=== PATIENT | female | born 2000 | race Caucasian/White ===

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

== ENCOUNTER 2022-05-19 19:33 | Emergency (ER) | payer BC, SELFPAY ==
[2022-05-19 19:34] VITALS: BP 137/114; PULSE 130; RESP 15; TEMP 37.4; O2SAT 99; BMI 19.8
[2022-05-19] MEDS: 0.9% Normal Saline 1,000 ML 1000 ML IV (20:02)
[2022-05-19] MEDS: dexAMETHasone 10 MG/ML Vial IV (20:02)
[2022-05-19 20:19] LABS: Absolute Lymphocyte Count 2.34 X10^3/uL (0.83-4.51); Absolute Neutrophil Count 7.1 X10^3/uL (2.0-7.7); Basophil# 0.02 X10^3/uL; Basophil% 0.2 % (0-1); Hematocrit 37.6 % (37-47); Hemoglobin 12.3 g/dL (12.0-15.0); Lymphocyte # 2.34 X10^3/ul (0.83-4.51); Lymphocyte % 22.1 % (19-41); Mean Corp Hgb Conc 32.7 g/dL (32-36); Mean Corpuscular Hgb 28.1 pg (27.0-32.0); Mean Corpuscular Volume 85.8 fL (81-99); Monocyte# 1.12 X10^3/uL; Monocyte% 10.6 % (0-10); NRBC Flagged by Analyzer 0 % (0-5); Neutrophil # 7.06 X10^3/uL (2.7-7.7); Neutrophil % 66.5 % (47-70); Platelet Count 212 K/mm3 (150-450); RBC Distribution Width CV 13.5 % (11.6-14.6); RBC Distribution Width SD 42.2 fl (35.1-43.9); Red Blood Count 4.38 M/mm3 (4.2-5.4); White Blood Count 10.6 K/mm3 (4.4-11.0)
--- NOTE | 2022-05-19 20:19 | EDS_ITS ---
HPI History of Present Illness Chief Complaint: Fever Informant: patient Onset/Context/Timing Onset: Days (3) Context: Gradual Onset Timing: Continuous Quality: Sharp Location: Throat Worsened by: Swallowing Relieved by: Nothing Narrative Narrative: Patient presents with fever and sore throat that has been getting worse over the last 3 days. Patient states that her fever was up to 106.9 at home. Patient states that she was recently diagnosed with mononucleosis. Patient states she has been having difficulty swallowing due to the swelling of her tonsils. Patient states that she has had a cough recently. Patient states she vomited after a cough. Patient states her pain is sharp. Patient states it is worse with any swallowing. Patient states she is able to swallow some liquids however. Patient admits to generalized body aches and muscle aches. PFSH PFSH Medical History no medical history no medical history Home Medications dexamethasone 6 mg tablet 6 mg PO DAILY #7 tabs 05/19/22 [Rx Last Taken Unknown] Allergy/AdvReac Type Severity Reaction Status Date / Time No Known Allergies Allergy Verified 03/07/21 14:55 Surgical History no surgical history no surgical history Social History (Updated 05/19/22 @ 20:[address] Walter Vasquez, DO) Smoking Status: Current every day smoker tobacco type: cigarettes substance use type: marijuana ROS ROS ED Constitutional Constitutional ED: Denies chills or fever(s) Eyes Eyes: Reports blurry vision; Denies change in vision ENT ENT ED: Reports sore throat; Denies rhinorrhea Cardiovascular Cardiovascular: Denies chest pain or palpitations Respiratory/Chest Respiratory/Chest: Reports cough; Denies dyspnea Gastrointestinal Gastrointestinal: Reports vomiting; Denies nausea Genitourinary Genitourinary ED: Denies dysuria or hematuria Musculoskeletal Musculoskeletal: Reports myalgias; Denies back pain or neck pain Integumentary Reports rash; Denies abscess Neurologic Neurologic: Denies headache(s) or weakness Allergic/Immunologic Allergic/Immunologic ED: Denies mouth swelling or urticaria EXAM Physical Exam Const Vital Signs: 05/19/22 19:34 05/19/22 19:40 Temperature 99.3 F H Temperature Source Temporal Pulse Rate 130 H Respiratory Rate 15 Respiratory Effort Normal Respiratory Pattern Normal Blood Pressure 137/114 H Blood Pressure Mean 121 Pulse Ox 99 Oxygen Delivery Method Room Air Positive well nourished and well developed General Appearance ED: well developed and NAD HEENT Reports moist mucous membranes HEENT Narrative: Oropharynx is erythematous. There are exudates on the tonsils bilaterally. Tonsils are swollen. Airway is patent. Neck supple and no JVD Neck Narrative: There is tender anterior cervical lymphadenopathy. Resp normal respiratory effort and clear to auscultation bilaterally Cardio regular rate and regular rhythm Neuro oriented x3, CN's II-XII intact bilaterally and no sensory deficits noted Sensorium / Orientation: alert Motor Exam: strength 5/5 throughout Psych mental status grossly normal MDM MDM MDM Narrative Medical decision making narrative: Patient was given IV fluids and Decadron here. CBC was within normal limits. Basic metabolic profile was within normal limits. Patient is feeling better on reevaluation. Patient was given a prescription for Decadron. Patient was instructed to start with ice chips and cold fluids. Patient was instructed to advance her diet as she feels better and is able to swallow more. Patient was instructed to follow-up with her primary care physician in 5 to 7 days. Patient understands and is agreeable with the plan. All questions were answered. Lab Data Attestation: I reviewed the patient's lab results. Labs: Laboratory Results - last 24 hr 05/19/22 05/19/22 20:05 20:05 WBC 10.6 RBC 4.38 Hgb 12.3 Hct 37.6 MCV 85.8 MCH 28.1 MCHC 32.7 RDW Std Deviation 42.2 RDW Coeff of Martha 13.5 Plt Count 212 MPV 9.0 Immature Gran % (Auto) 0.600 Neut % (Auto) 66.5 Lymph % (Auto) 22.1 [place] % (Auto) 10.6 H Eos % (Auto) 0.0 Baso % (Auto) 0.2 Absolute Neuts (auto) 7.1 Absolute Lymphs (auto) 2.34 Nucleated RBC % 0 Sodium 135 L Potassium 4.0 Chloride 101 Carbon Dioxide 28.0 Anion Gap 6 BUN 14 Creatinine 1.00 Estim Creat Clear Calc 79.04 Est GFR (MDRD) Af Amer 90 Est GFR (MDRD) Non-Af 75 BUN/Creatinine Ratio 14.0 Glucose 116 H Calcium 9.0 Discharge Plan Triage Chief Complaint: Fever ED Provider: Walter Vasquez Dx/Rx/DC Orders Clinical Impression: Acute pharyngitis, Infectious mononucleosis Instructions: ED Mononucleosis Prescriptions: New dexamethasone 6 MG tablet 6 mg PO DAILY Qty: 7 0RF Primary Care Provider: Care Physician,No Primary Referrals: Mily Rajan [Non-Staff] - 5-7 Days Care Physician,No Primary [Primary Care Provider] - Disposition Disposition: Home, Self Care
[2022-05-19 20:34] LABS: Anion Gap 6 (5-15); BUN 14 mg/dL (7-18); Chloride 101 mmol/L (98-107); EST Glomerular Filtration Rate 75 mL/min (>60); Est Glom Filt Rate - Afr Amer 90 mL/min (>60); Estimated Creatinine Clearance 79.04 ml/min; Glucose 116 mg/dL (74-106); Sodium Level 135 mmol/L (136-145)
[2022-05-19 21:52] VITALS: PULSE 85; RESP 15; O2SAT 99
== END 2022-05-19 21:52 | disposition home or self-care (01) ==
PROVIDERS: Emergency Provider Emergency Medicine; Visit Provider Emergency Medicine
DX: B27.90 Infectious mononucleosis, unspecified without complication (principal); J02.9 Acute pharyngitis, unspecified; F17.210 Nicotine dependence, cigarettes, uncomplicated; R50.9 Fever, unspecified; R11.10 Vomiting, unspecified
CPT/HCPCS: 80048; 85025; 96361; 96374; 99283; J7030; A4216

== ENCOUNTER 2022-05-21 22:07 | Emergency (ER) | payer BC, MEDICAID, SELFPAY ==
[2022-05-21 22:11] VITALS: BP 113/81; PULSE 122; RESP 14; TEMP 37.6; O2SAT 94
--- NOTE | 2022-05-21 22:56 | EKG12_ITS ---
Test Reason : DYSRHYTHMIA Blood Pressure : / mmHG Vent. Rate : 107 BPM Atrial Rate : 107 BPM P-R Int : 154 ms QRS Dur : 072 ms QT Int : 308 ms P-R-T Axes : 049 043 006 degrees QTc Int : 411 ms Sinus tachycardia Nonspecific T wave abnormality Abnormal ECG Confirmed by JUAN RAYO, HINA ([id number]), senior editor JACY GIRALDO ([id number]) on 05/22/2022 11:45:27 AM Referred By: DAVONTE Confirmed By:HINA MARTINEZ MD
--- NOTE | 2022-05-21 23:00 | EX.ED.DYSGE1 ---
HPI History of Present Illness Chief Complaint: Nausea/Vomiting Informant: patient Narrative Narrative: Patient presents with nausea vomiting and difficulty taking p.o. She states her throat has been sore for about 5 or 6 days. She has some mild fevers intermittently and malaise. She was seen at urgent care. She had negative strep COVID influenza. Therefore she was told she has mono but it sounds like a mono test was not actually done. She was seen here and felt better after treatment. She evidently does have some Zofran at home left over from her prior illness but is not really helping with nausea. She states she is able to swallow food and drink. But she vomits it up. Its not so much inability to swallow with an inability to keep it down. Not really having abdominal pain. Her urination is decreased in volume but there is no dysuria burning. No diarrhea. She is not really coughing. She is not short of breath. PFSH PFSH Home Medications dexamethasone 6 mg tablet 6 mg PO DAILY #7 tabs 05/19/22 [Rx Last Taken Unknown] promethazine 25 mg tablet 25 mg PO TID PRN nausea and vomiting #10 tabs 05/22/22 [Rx Last Taken Unknown] Allergy/AdvReac Type Severity Reaction Status Date / Time No Known Allergies Allergy Verified 05/21/22 22:11 Social History Smoking Status: Former smoker substance use type: marijuana ROS ROS ED Constitutional Constitutional ED: Reports fever(s) and subjective Eyes Eyes: Denies blurry vision, change in vision or diplopia ENT ENT ED: Reports sore throat Cardiovascular Cardiovascular: Denies chest pain or palpitations Respiratory/Chest Respiratory/Chest: Denies cough or dyspnea Gastrointestinal Gastrointestinal: Reports nausea and vomiting; Denies abdominal pain, constipation or diarrhea Genitourinary Genitourinary ED: Reports other Details: Decrease frequency and amount. ; Denies dysuria, hematuria or urinary frequency Musculoskeletal Musculoskeletal: Denies myalgias Integumentary Denies rash Neurologic Neurologic: Denies headache(s) Hematologic/Lymphatic Hematologic/Lymphatic: Reports lymphadenopathy Allergic/Immunologic Allergic/Immunologic ED: Denies urticaria EXAM Physical Exam Const Vital Signs: 05/21/22 22:11 Temperature 99.6 F H Temperature Source Temporal Pulse Rate 122 H Respiratory Rate 14 Blood Pressure 113/81 H Blood Pressure Mean 91 Pulse Ox 94 Oxygen Delivery Method Room Air Positive well nourished and well developed General Appearance ED: well developed; Negative for pallor HEENT Reports dry mucous membranes HEENT Narrative: Both tonsillar pillars are somewhat enlarged. There is some erythema. She is able to handle secretions though. Floor the mouth is soft. No sinus tenderness. Mouth ED: Yes dry mucous membranes Mouth: dry mucous membranes Eyes EOMs intact bilaterally General Eye ED: Negative for pale conjunctiva or scleral icterus Neck Neck Narrative: Patient does have bilateral lymphadenopathy. No stridor is heard. Resp normal respiratory effort and clear to auscultation bilaterally Cardio regular rhythm and no murmurs Rate: tachycardic GI normal to inspection, nondistended, normoactive bowel sounds and non-tender Back/Spine no CVA tenderness Neuro Sensorium / Orientation: alert Psych mental status grossly normal Skin no rashes or lesions noted General Skin Exam: Negative for jaundice or pallor MDM MDM MDM Narrative Medical decision making narrative: Patient is given IV fluids and Zofran. This did help her. Her blood work comes back showing decreased hemoglobin. Some of this might be from IV fluids that she has received. She now tells me that she is drinking fluids. But if she drinks too much at 1 time she gets nauseated and will vomit. If she drinks small amounts which she has been trying to do she actually does well. Again, its not difficulty swallowing its more the nausea. Electrolytes did show some mildly decreased calcium but this could also be related to the slightly low protein with an acute illness. The low hemoglobin may also be due to a viral illness causing some slight hemolysis. She is not at all jaundice though. There is no right upper quadrant pain. [place] screen is negative. As well as strep being negative. This is most likely a viral illness. I think she is okay to go home. She is able to drink fluids here. She is able to keep down some fluids. I will write for some Phenergan so she has 2 options of meds for nausea. We discussed reasons to return including lack of resolution, development of pain, trouble swallowing, yellowing of eyes or other concerns Lab Data Attestation: I reviewed the patient's lab results. Labs: Laboratory Results - last 24 hr 05/22/22 05/22/22 05/22/22 00:10 00:45 00:45 WBC 7.6 RBC 3.42 L Hgb 9.5 L Hct 29.6 L MCV 86.5 MCH 27.8 MCHC 32.1 RDW Std Deviation 42.9 RDW Coeff of [place] 13.7 Plt Count 186 MPV 8.6 Immature Gran % (Auto) 0.300 Neut % (Auto) 61.6 Lymph % (Auto) 26.5 [place] % (Auto) 10.9 H Eos % (Auto) 0.4 Baso % (Auto) 0.3 Absolute Neuts (auto) 4.7 Absolute Lymphs (auto) 2.02 Nucleated RBC % 0 Atypical Lymphocytes 1+ Sodium 139 Potassium 3.5 Chloride 108 H Carbon Dioxide 24.0 Anion Gap 7 BUN 10 Creatinine 0.74 Estim Creat Clear Calc 4.56 Est GFR (MDRD) Af Amer 128 Est GFR (MDRD) Non-Af 106 BUN/Creatinine Ratio 13.5 Glucose 91 Calcium 7.6 L Monoscreen Negative Discharge Plan Triage Chief Complaint: Nausea/Vomiting ED Provider: Gianni Stinson Dx/Rx/DC Orders Clinical Impression: Acute pharyngitis, Nausea & vomiting Instructions: ED Pharyngitis, Viral, ED Vomiting (Adult) Prescriptions: New promethazine 25 mg tablet 25 mg PO TID PRN (Reason: nausea and vomiting) Qty: 10 0RF No Action dexamethasone 6 MG tablet 6 mg PO DAILY Qty: 7 0RF Primary Care Provider: Care Physician,No Primary Referrals: Suha Meadows MD [Med Staff - Client Architect] - 1-2 Days if not improving Care Physician,No Primary [Primary Care Provider] - Disposition Disposition: Home, Self Care
[2022-05-21] MEDS: Ondansetron 4 MG/2 ML Vial IV (23:53)
[2022-05-21] MEDS: 0.9% Normal Saline 1,000 ML 1000 ML IV (23:53)
[2022-05-22 00:38] LABS: Internal QC Validated? YES +Cl - CLEAR BKGD; Monotest Negative (Negative)
[2022-05-22 00:53] LABS: Absolute Lymphocyte Count 2.02 X10^3/uL (0.83-4.51); Absolute Neutrophil Count 4.7 X10^3/uL (2.0-7.7); Basophil# 0.02 X10^3/uL; Basophil% 0.3 % (0-1); Eosinophil# 0.03 X10^3/uL; Eosinophils% 0.4 % (0-5); Hematocrit 29.6 % (37-47); Hemoglobin 9.5 g/dL (12.0-15.0); Lymphocyte # 2.02 X10^3/ul (0.83-4.51); Lymphocyte % 26.5 % (19-41); Mean Corp Hgb Conc 32.1 g/dL (32-36); Mean Corpuscular Hgb 27.8 pg (27.0-32.0); Mean Corpuscular Volume 86.5 fL (81-99); Mean Platelet Vol. 8.6 fl (6.2-12.0); Monocyte# 0.83 X10^3/uL; Monocyte% 10.9 % (0-10); NRBC Flagged by Analyzer 0 % (0-5); Neutrophil # 4.71 X10^3/uL (2.7-7.7); Neutrophil % 61.6 % (47-70); POSITIVE MORPHOLOGY YES; Platelet Count 186 K/mm3 (150-450); RBC Distribution Width CV 13.7 % (11.6-14.6); RBC Distribution Width SD 42.9 fl (35.1-43.9); Red Blood Count 3.42 M/mm3 (4.2-5.4); White Blood Count 7.6 K/mm3 (4.4-11.0)
[2022-05-22 01:00] VITALS: RESP 18
[2022-05-22 01:02] LABS: Differential Indicated SCAN CRITERIA MET
[2022-05-22 01:06] LABS: Anion Gap 7 (5-15); Atypical Lymphocyte 1+ %; BUN 10 mg/dL (7-18); BUN/Creat Ratio 13.5 RATIO (10-20); Calcium,Total 7.6 mg/dL (8.5-10.1); Chloride 108 mmol/L (98-107); Creatinine, Serum 0.74 mg/dL (0.55-1.02); EST Glomerular Filtration Rate 106 mL/min (>60); Est Glom Filt Rate - Afr Amer 128 mL/min (>60); Estimated Creatinine Clearance 4.56 ml/min; Glucose 91 mg/dL (74-106); Potassium 3.5 mmol/L (3.5-5.1); Sodium Level 139 mmol/L (136-145)
[2022-05-22 01:48] VITALS: BP 121/77; PULSE 104; RESP 16; O2SAT 98
== END 2022-05-22 01:49 | disposition home or self-care (01) ==
PROVIDERS: Emergency Provider Emergency Medicine; Visit Provider Emergency Medicine
DX: R11.2 Nausea with vomiting, unspecified (principal); J02.9 Acute pharyngitis, unspecified; B27.90 Infectious mononucleosis, unspecified without complication; Z87.891 Personal history of nicotine dependence
CPT/HCPCS: 80048; 85025; 86308; 87880; 93005; 99285; J7030; A4216; J2405

== ENCOUNTER 2023-06-17 09:00 | Emergency (ER) | payer BC, SELFPAY ==
[2023-06-17 09:01] VITALS: BP 136/85; PULSE 109; RESP 16; TEMP 36.6; O2SAT 99; BMI 24.2
--- NOTE | 2023-06-17 09:22 | EX.ED.DYSGE1 ---
HPI History of Present Illness Chief Complaint: Fever Informant: patient Narrative Narrative: 22-year-old patient presenting to the emergency room with fever and cough. Patient states that she became ill towards the end of last week. Over the weekend symptoms worsened and include cough sore throat myalgias and fever. She notes that her significant other works at a daycare. Her mother works at a hospital. She has been taking Tylenol. Last dose approximately 3 hours ago at 1 g. She states the same thing happened to her last year when she was sick for 14 days. This felt to be a viral illness. She is a non-smoker and otherwise healthy. She notes a slight amount of diarrhea. PFSH PFSH Home Medications dexamethasone 6 mg tablet 6 mg PO DAILY #7 tabs 05/19/22 [Rx Last Taken Unknown] promethazine 25 mg tablet 25 mg PO TID PRN nausea and vomiting #10 tabs 05/22/22 [Rx Last Taken Unknown] Allergy/AdvReac Type Severity Reaction Status Date / Time No Known Allergies Allergy Verified 06/17/23 09:01 Social History Smoking Status: Former smoker substance use type: marijuana ROS ROS ED Constitutional Constitutional ED: Reports chills and fever(s); Denies weight loss Eyes Eyes: Denies change in vision or diplopia ENT ENT ED: Reports rhinorrhea and sore throat; Denies ear pain Cardiovascular Cardiovascular: Denies chest pain, orthopnea, palpitations or racing heartbeat Respiratory/Chest Respiratory/Chest: Reports cough; Denies dyspnea or orthopnea Gastrointestinal Gastrointestinal: Reports diarrhea; Denies abdominal pain, nausea or vomiting Genitourinary Genitourinary ED: Denies dysuria, hematuria or urinary frequency Musculoskeletal Musculoskeletal: Reports myalgias; Denies arthralgias, back pain or neck pain Integumentary Denies abscess or rash Neurologic Neurologic: Denies paresthesias or weakness Psychiatric Psychiatric: Denies anxiety, depression, suicidal ideation or suicidal thoughts Endocrine Endocrinology: Denies polydipsia, polyphagia or polyuria Allergic/Immunologic Allergic/Immunologic ED: Denies mouth swelling, tongue swelling or urticaria EXAM Physical Exam Narrative Exam Narrative: Well-appearing 22-year-old patient sitting comfortably in the bed. No acute distress. Const Vital Signs: 06/17/23 09:01 Temperature 97.8 F Temperature Source Temporal Pulse Rate 109 H Respiratory Rate 16 Blood Pressure 136/85 H Blood Pressure Mean 102 Pulse Ox 99 Oxygen Delivery Method Room Air Positive well nourished and well developed General Appearance ED: well developed HEENT Reports normocephalic, head/scalp atraumatic and moist mucous membranes HEENT Narrative: No photophobia. Patient has evidence of postnasal drip. No significant oropharyngeal erythema or petechiae. No tonsillar exudates seen. No evidence of retropharyngeal or peritonsillar abscess. Eyes PERRL and EOMs intact bilaterally Neck no lymphadenopathy, supple and no JVD Neck Narrative: No pain with movement of neck Resp normal respiratory effort and clear to auscultation bilaterally Cardio regular rate, regular rhythm and no murmurs GI normal to inspection, nondistended, normoactive bowel sounds and non-tender Palpation: soft Back/Spine no CVA tenderness and normal ROM Extremity normal to inspection General Extremety ED: Negative for edema General Extremity: Negative for edema Neuro oriented x3 and CN's II-XII intact bilaterally Sensorium / Orientation: alert Motor Exam: strength 5/5 throughout Psych mental status grossly normal Mood & Affect: Negative for depressed or tearful Skin no rashes or lesions noted and no wounds MDM MDM MDM Narrative Medical decision making narrative: My independent interpretation of the single view chest x-ray is no acute process. This was read also by radiology as negative. RSV, influenza, and COVID swabs were negative. At this point I think the patient most likely has a viral illness. I am not seeing evidence of a specific virus at this time. Would recommend continued supportive care of antipyretics fluid hydration and rest. Work note will be given. Return if worsening or concerns Lab Data Attestation: I reviewed the patient's lab results. Radiography Diagnostic Testing: Clinical Impression(s) from Imaging Studies Chest X-Ray 06/17/23 09:25 IMPRESSION: Normal x-ray examination of the chest. Electronically Signed: Sergey Horton MD at 9:50 EST , Discharge Plan Triage Chief Complaint: Fever ED Provider: Charli Anderson Dx/Rx/DC Orders Prescriptions: No Action dexamethasone 6 MG tablet 6 mg PO DAILY Qty: 7 0RF promethazine 25 mg tablet 25 mg PO TID PRN (Reason: nausea and vomiting) Qty: 10 0RF Primary Care Provider: Care Physician,No Primary Referrals: Care Physician,No Primary [Primary Care Provider] -
--- NOTE | 2023-06-17 09:25 | RAD_ITS ---
STUDY: X-RAY CHEST REASON FOR EXAM: Female, 22 years old. Cough and fever TECHNIQUE: Single AP portable view of the chest. COMPARISON: None. FINDINGS: The lungs are clear and expanded. There is no demonstrated pleural abnormality. Normal size heart. Normal mediastinum and lorie. Normal visualized pulmonary arteries. Normal visualized aortic arch and descending thoracic aorta. Normal visualized thoracic spine. Normal visualized ribs, clavicles, and shoulders. There is no demonstrated abnormality of the visualized soft tissue structures of the upper abdomen. RAD/Chest 1 View (Portable) IMPRESSION: Normal x-ray examination of the chest. Electronically Signed: Sergey Horton MD at 9:50 EST ,
[2023-06-17] MEDS: Ibuprofen 400 MG Tablet 800 MG PO (09:39)
== END 2023-06-17 10:54 | disposition home or self-care (01) ==
PROVIDERS: Emergency Provider Emergency Medicine; Visit Provider Emergency Medicine
DX: R50.9 Fever, unspecified (principal); Z87.891 Personal history of nicotine dependence; R19.7 Diarrhea, unspecified; R05.9 Cough, unspecified; M79.10 Myalgia, unspecified site
CPT/HCPCS: 71045; 87428; 87807; 99282